=== PATIENT | female | born 1990 | race Two or more races ===

== ENCOUNTER 2018-04-17 20:59 | Emergency (ER) | payer OTHER ==
[2018-04-17] MEDS ORDERED: Acetaminophen TAB* 325 MG PO ONE (23:17)
[2018-04-17 23:25] VITALS: BP 131/82
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
--- NOTE | 2018-04-18 08:10 | RAD ---
Indication: Left knee pain. 4 views of the left knee demonstrates no joint effusion. Joint spaces all well-preserved. Infrapatellar and quadriceps tendon are unremarkable. IMPRESSION: No joint effusion. No fracture is noted. R0
== END 2018-04-17 23:24 | disposition home or self-care (01) ==
LOC: ED 20:59
DX: S80.02XA Contusion of left knee, initial encounter (principal); S80.212A Abrasion, left knee, initial encounter; S80.211A Abrasion, right knee, initial encounter; V49.9XXA Car occupant (driver) (passenger) injured in unspecified traffic accident, initial encounter; Y92.9 Unspecified place or not applicable
CPT/HCPCS: 99282; A9270-GY